=== PATIENT | female | born 1940 | race Caucasian/White ===

== ENCOUNTER 2020-05-22 12:38 | Day surgery (SDC) | payer MEDICARE ==
[~2020-05-22] VITALS: Ht 157.5 cm; Wt 58.0 kg
[2020-05-22] MEDS ORDERED: FENTANYL PF 100 MCG/2ML ONE (12:48)
[2020-05-22] MEDS ORDERED: MIDAZOLAM 1 MG/ML, 2ML ONE (12:48)
[2020-05-22] MEDS ORDERED: DOXA1TAB2 PO (13:17)
[2020-05-22] MEDS ORDERED: DIGO125T85 PO (13:17)
[2020-05-22] MEDS ORDERED: VANC125C11 PO (13:17)
[2020-05-22] MEDS ORDERED: HYDR-3342 PO (13:17)
[2020-05-22] MEDS ORDERED: FURO-93 PO (13:17)
[2020-05-22] MEDS ORDERED: WARF2TAB99 PO (13:17)
[2020-05-22] MEDS ORDERED: LISI-170 PO (13:17)
[2020-05-22] MEDS ORDERED: LACTATED RINGERS 1,000 ML IV SCH (13:18)
[2020-05-22] MEDS ORDERED: HYDR-3652 PO (13:22)
[2020-05-22 13:23] VITALS: BP 136/67
[2020-05-22] MEDS ORDERED: morphine SULFATE 10 MG/ML, 1ML IVPush PRN (13:30)
[2020-05-22] MEDS ORDERED: CHLORHEXIDINE 15 ML UDC MM ONE (13:30)
[2020-05-22] MEDS ORDERED: ONDANSETRON 2MG/ML, 2ML IVPush PRN (13:30)
[2020-05-22] MEDS ORDERED: PROMETHAZINE 25 MG/ML, 1ML IVPush PRN (13:30)
[2020-05-22] MEDS ORDERED: hydrALAzine 20 MG/ML, 1ML IV PRN (13:30)
[2020-05-22] MEDS ORDERED: FENTANYL PF 100 MCG/2ML IV PRN (13:30)
[2020-05-22] MEDS ORDERED: OXYcodone 5 MG/5 ML ORAL.SOL UDC PO PRN (13:30)
[2020-05-22 13:36] LABS: MEAN CORPUSCULAR HEMOGLOBIN 29.1 pg (27.0-34.8); MEAN CORPUSCULAR HGB CONC 33.8 g/dL (32.4-35.8); MEAN CORPUSCULAR VOLUME 86.3 fL (80-100); MEAN PLATELET VOLUME 9.3 fL (7.4-10.4); PLATELET COUNT 205 x10^3/uL (130-400); RED CELL DISTRIBUTION WIDTH 16.2 % (9.6-15.2)
[2020-05-22] MEDS ORDERED: PROPOFOL 10 MG/ML, 20ML ONE (13:43)
[2020-05-22 13:46] LABS: ANION GAP 8 mmol/L (5-15); CALCIUM 10.3 mg/dL (8.5-10.1); CHLORIDE 110 mmol/L (98-107); CREATININE 1.68 mg/dL (0.55-1.02)
[2020-05-22 14:16] LABS: MD SCAN
[2020-05-22 14:17] LABS: BASOPHILS # (AUTO) 0.01 x10^3/uL (0-0.1); BASOPHILS % (AUTO) 1 % (0-1); EOSINOPHILS # (AUTO) 0.02 x10^3/uL (0-0.4); EOSINOPHILS % (AUTO) 1 % (1-7); LYMPHOCYTES # (AUTO) 0.63 x10^3/uL (1-3.4); LYMPHOCYTES % (AUTO) 32 % (22-44); MONOCYTES # (AUTO) 0.23 x10^3/uL (0.2-0.8); MONOCYTES % (AUTO) 12 % (2-9); NEUTROPHILS # (AUTO) 1.11 x10^3/uL (1.8-6.8); NEUTROPHILS % (AUTO) 55 % (42-75)
[2020-05-22] MEDS ORDERED: CHLORHEXIDINE 15 ML UDC ONE (21:33)
== END 2020-05-22 15:21 | disposition home or self-care (01) ==
LOC: OUT 12:38
PROVIDERS: ATTEND Internal Medicine
DX: A04.71 Enterocolitis due to Clostridium difficile, recurrent (principal); Z11.59 Encounter for screening for other viral diseases; Z79.899 Other long term (current) drug therapy; Z88.8 Allergy status to other drugs, medicaments and biological substances
CPT/HCPCS: 36415; 45380; 80048; 85025; 87635; 93005; G0455; J2250; J2704; J3010; J7120